=== PATIENT | female | born 1945 | race Asian ===

== ENCOUNTER 2020-04-01 13:51 | Emergency (ER) | payer MEDICARE, MEDICAID ==
[~2020-04-01] VITALS: Ht 157.5 cm; Wt 63.6 kg
[2020-04-01] MEDS ORDERED: UNKNOWN BP MED PO (13:59)
[2020-04-01] MEDS ORDERED: LISI-662 PO (14:03)
[2020-04-01 14:10] VITALS: BP 133/97
[2020-04-01] MEDS ORDERED: BUPIVACAINE HCL/PF 0.25% 10 ML VIAL INJ ONE (15:00)
[2020-04-01] MEDS ORDERED: PERTUSS(ACELL),DIPH,TET VAC/PF 0.5 ML VIAL IM ONE (15:00)
== END 2020-04-01 15:45 | disposition home or self-care (01) ==
LOC: EMS 13:57
DX: S61.211A Laceration without foreign body of left index finger without damage to nail, initial encounter (principal); Z88.0 Allergy status to penicillin; Z79.899 Other long term (current) drug therapy; W26.0XXA Contact with knife, initial encounter; Y93.89 Activity, other specified; Y92.89 Other specified places as the place of occurrence of the external cause; Y99.8 Other external cause status
CPT/HCPCS: 90471; 90715; 99283; J3490

== ENCOUNTER 2022-10-20 15:10 | Inpatient (IN) | payer MEDICARE, OTHER ==
[~2022-10-20] VITALS: Ht 154.9 cm; Wt 69.9 kg
[~2022-10-20 15:10] MED LIST: LISI-894 PO
[2022-10-20] MEDS ORDERED: ACETAMINOPHEN 500 MG TABLET PO ONE (16:15)
[2022-10-20 16:59] LABS: BASOPHILS % (AUTO) 0.2 % (0.0-2.0); EOSINOPHILS % (AUTO) 0.1 % (1.0-6.0); HEMATOCRIT 34.2 % (36-46); HEMOGLOBIN 10.5 g/dL (12.0-16.0); LYMPHOCYTES # (AUTO) 1.4 K/uL (1.0-4.8); LYMPHOCYTES % (AUTO) 10.2 % (22.0-44.0); MEAN CORPUSCULAR HEMOGLOBIN 21.5 pg (26.0-34.0); MEAN CORPUSCULAR HGB CONC 30.8 G/dL (31.0-37.0); MEAN CORPUSCULAR VOLUME 70 fL (80-100); MONOCYTES # (AUTO) 1.7 K/uL (0.1-1.0); MONOCYTES % (AUTO) 12.5 % (2.0-9.0); NEUTROPHILS # (AUTO) 10.2 K/uL (1.8-7.7); PLATELET COUNT (AUTO) 226 K/uL (150-450); RED BLOOD CELL COUNT(AUTO) 4.89 MIL/uL (4.00-5.20); RED CELL DISTRIBUTION WIDTH 14.4 % (11.5-14.5)
[2022-10-20 17:09] LABS: CALCIUM, TOTAL 9.6 mg/dL (8.8-10.5); CREATININE 1.8 mg/dL (0.60-1.30); POTASSIUM 4.1 mmol/L (3.5-5.1)
[2022-10-20 17:16] LABS: ALBUMIN 3.5 g/dL (3.4-5.0); BILIRUBIN,TOTAL 0.9 mg/dL (0.1-1.0); LACTIC ACID 1.6 mmol/L (0.4-2.0); TOTAL PROTEIN, SERUM 8.5 g/dL (6.4-8.2)
[2022-10-20] MEDS ORDERED: HYDROCODONE/ACETAMINOPHEN 5-325 MG TABLET PO ONE (19:30)
[2022-10-20] MEDS ORDERED: ACETAMINOPHEN 325 MG TABLET PO PRN (23:45)
[2022-10-20] MEDS ORDERED: HYDROCODONE/ACETAMINOPHEN 5-325 MG TABLET PO PRN (23:45)
[2022-10-20] MEDS ORDERED: ONDANSETRON HCL 4 MG/2 ML VIAL IVP PRN (23:45)
[2022-10-21 00:02] LABS: % IRON SATURATION 7.4 % (22-44)
[2022-10-21] MEDS: SODIUM CHLORIDE 0.9% 1,850 ML IV ONE ×2 (01:00→02:07)
[2022-10-21] MEDS ORDERED: MORPHINE SULFATE 2 MG/ML SYRINGE IVP ONE (01:00)
[2022-10-21] MEDS: HEPARIN SODIUM,PORCINE 5,000 UNITS/ML VIAL SQ SCH ×4 (08:07→23:52)
[2022-10-21 08:16] LABS: GLUCOSE,POINT OF CARE 88 MG/DL (70-110)
[2022-10-21 08:56] LABS: APPEARANCE,URINE CLEAR (CLEAR); BILIRUBIN,URINE NEGATIVE (NEGATIVE); GLUCOSE, URINE (UA) NEGATIVE (NEGATIVE); KETONES,URINE TRACE mg/dL (NEGATIVE); LEUKOCYTE ESTERASE ,URINE NEGATIVE (NEGATIVE); NITRATE,URINE NEGATIVE (NEGATIVE); OCCULT BLOOD,URINE NEGATIVE (NEGATIVE); PROTEIN,URINE NEGATIVE (NEGATIVE); SPECIFIC GRAVITIY, URINE 1.011 (1.003-1.030); UROBILINOGEN,URINE <=1.0 mg/dL (<=1.0)
[2022-10-21 09:02] LABS: BACTERIA,URINE None Seen /HPF (None Seen); RBC,URINE None Seen /HPF (0-2); WBC,URINE None Seen /HPF (0-5)
[2022-10-21 09:03] LABS: CREATININE,URINE RANDOM 66.4 mg/dL (30.0-125.0); SODIUM,URINE RANDOM 79 mmol/l (20-110)
[2022-10-21 09:54] VITALS: BP 124/85
[2022-10-21 10:41] LABS: BASOPHILS % (AUTO) 0.3 % (0.0-2.0); EOSINOPHILS % (AUTO) 0.7 % (1.0-6.0); HEMATOCRIT 33.2 % (36-46); HEMOGLOBIN 10.2 g/dL (12.0-16.0); LYMPHOCYTES # (AUTO) 1.2 K/uL (1.0-4.8); LYMPHOCYTES % (AUTO) 11.1 % (22.0-44.0); MEAN CORPUSCULAR HGB CONC 30.9 G/dL (31.0-37.0); MEAN CORPUSCULAR VOLUME 71 fL (80-100); MONOCYTES # (AUTO) 0.8 K/uL (0.1-1.0); MONOCYTES % (AUTO) 7.6 % (2.0-9.0); NEUTROPHILS # (AUTO) 8.5 K/uL (1.8-7.7); NEUTROPHILS % (AUTO) 80.3 % (40.0-70.0); PLATELET COUNT (AUTO) 217 K/uL (150-450); RED BLOOD CELL COUNT(AUTO) 4.66 MIL/uL (4.00-5.20); RED CELL DISTRIBUTION WIDTH 14.4 % (11.5-14.5)
[2022-10-21 10:55] LABS: CALCIUM, TOTAL 8.9 mg/dL (8.8-10.5); CREATININE 1.46 mg/dL (0.60-1.30)
[2022-10-21] MEDS: DOCUSATE SODIUM 100 MG CAPSULE PO SCH ×2 (10:56→19:59)
[2022-10-21] MEDS ORDERED: INSULIN LISPRO 100 UNITS/ML SQ PRN (11:00)
[2022-10-21] MEDS ORDERED: DEXTROSE 50%-WATER 25 GM/50 ML SYRINGE IVP PRN (11:00)
[2022-10-21 17:36] LABS: GLUCOMETER DEV NAME(LOC) 5N.2C; GLUCOSE,POINT OF CARE 97 MG/DL (70-110)
[2022-10-21 19:56] LABS: GLUCOMETER DEV NAME(LOC) 5N.2C; GLUCOSE,POINT OF CARE 87 MG/DL (70-110)
[2022-10-21 20:00] VITALS: BP 127/61
[2022-10-21] MEDS: HYDROmorphone HCL 2 MG/ML SYRINGE IVP PRN (23:49)
[2022-10-22] VITALS: BP_SYST 130; BP_DIAS 72; BP_DIAS 75
[2022-10-22 01:01] LABS: GLUCOMETER DEV NAME(LOC) 5N.2C; GLUCOSE,POINT OF CARE 112 MG/DL (70-110)
[2022-10-22 04:00] VITALS: BP 114/58
[2022-10-22] MEDS: HYDROmorphone HCL 2 MG/ML SYRINGE IVP PRN (06:03)
[2022-10-22 07:15] VITALS: BP 114/65
[2022-10-22] MEDS: DOCUSATE SODIUM 100 MG CAPSULE PO SCH ×2 (09:11→20:12)
[2022-10-22] MEDS: HEPARIN SODIUM,PORCINE 5,000 UNITS/ML VIAL SQ SCH ×2 (09:12→16:18)
[2022-10-22 12:16] VITALS: BP 130/80
[2022-10-22 15:28] VITALS: BP 131/74
[2022-10-22 18:26] LABS: GLUCOMETER DEV NAME(LOC) 5S.2C; GLUCOSE,POINT OF CARE 89 MG/DL (70-110)
[2022-10-22 18:26] LABS: GLUCOMETER DEV NAME(LOC) 5S.2C; GLUCOSE,POINT OF CARE 84 MG/DL (70-110)
[2022-10-22 20:00] VITALS: BP 129/68
[2022-10-22 21:41] LABS: GLUCOMETER DEV NAME(LOC) 5N.2C; GLUCOSE,POINT OF CARE 107 MG/DL (70-110)
[2022-10-22 21:41] LABS: GLUCOMETER DEV NAME(LOC) 5N.2C; GLUCOSE,POINT OF CARE 76 MG/DL (70-110)
[2022-10-23] VITALS: BP 133/70
[2022-10-23 04:00] VITALS: BP 119/97
[2022-10-23 07:13] VITALS: BP 153/92
[2022-10-23] MEDS: HEPARIN SODIUM,PORCINE 5,000 UNITS/ML VIAL SQ SCH ×3 (08:21→16:37)
[2022-10-23] MEDS: DOCUSATE SODIUM 100 MG CAPSULE PO SCH ×2 (08:25→20:48)
[2022-10-23 11:40] VITALS: BP 121/73
[2022-10-23 15:59] VITALS: BP 129/76
[2022-10-23 19:01] LABS: GLUCOMETER DEV NAME(LOC) 5N.2C; GLUCOSE,POINT OF CARE 100 MG/DL (70-110)
[2022-10-23 19:01] LABS: GLUCOMETER DEV NAME(LOC) 5N.2C; GLUCOSE,POINT OF CARE 98 MG/DL (70-110)
[2022-10-23 20:50] VITALS: BP 118/69
[2022-10-24 00:18] VITALS: BP 99/75
[2022-10-24 05:01] LABS: GLUCOMETER DEV NAME(LOC) 5N.2C; GLUCOSE,POINT OF CARE 117 MG/DL (70-110)
[2022-10-24 06:30] VITALS: BP 117/74
[2022-10-24 07:45] VITALS: BP 129/62
[2022-10-24] MEDS: DOCUSATE SODIUM 100 MG CAPSULE PO SCH (07:49)
[2022-10-24] MEDS: HEPARIN SODIUM,PORCINE 5,000 UNITS/ML VIAL SQ SCH ×2 (07:49)
[2022-10-24 11:30] VITALS: BP 112/56
[2022-10-24 14:10] LABS: COVID AG,FIA SOURCE NASOPHARYNGEAL
[2022-10-24 17:52] LABS: GLUCOMETER DEV NAME(LOC) 5S.2C; GLUCOSE,POINT OF CARE 103 MG/DL (70-110)
[2022-10-24 17:52] LABS: GLUCOMETER DEV NAME(LOC) 5S.2C; GLUCOSE,POINT OF CARE 105 MG/DL (70-110)
== END 2022-10-24 16:16 | DRG 563 ==
LOC: EMS 15:34 → 5N 10-21 05:00
PROVIDERS: ADMIT Internal Medicine; ATTEND Internal Medicine
DX: S82.51XA Displaced fracture of medial malleolus of right tibia, initial encounter for closed fracture (principal); N17.9 Acute kidney failure, unspecified; Z20.822 Contact with and (suspected) exposure to COVID-19; Z60.2 Problems related to living alone; D50.9 Iron deficiency anemia, unspecified; M25.531 Pain in right wrist; E66.9 Obesity, unspecified; M25.532 Pain in left wrist; E11.9 Type 2 diabetes mellitus without complications; I10 Essential (primary) hypertension; Z88.0 Allergy status to penicillin; Z79.899 Other long term (current) drug therapy; V78.4XXA Person boarding or alighting from bus injured in noncollision transport accident, initial encounter; Y93.89 Activity, other specified; Y92.89 Other specified places as the place of occurrence of the external cause; Y99.8 Other external cause status; Z68.29 Body mass index [BMI] 29.0-29.9, adult
CPT/HCPCS: 71046; 80048; 80053; 81001; 82570; 82962; 83540; 83550; 83605; 83735; 84300; 85025; 85045; 87040; 93005; 97162; 97166; 97530; 97535; 99285; J1170; J1644; J2270; J7030; 36415-L1; 36415-TC

== ENCOUNTER 2023-04-27 13:11 | Emergency (ER) | payer MEDICARE, OTHER ==
[~2023-04-27] VITALS: Ht 157.5 cm; Wt 75.0 kg
[2023-04-27 13:15] VITALS: TEMP 98.9
[2023-04-27] MEDS ORDERED: LISI40TA9 PO (13:25)
[2023-04-27] MEDS ORDERED: CALC-1267 PO (13:25)
[2023-04-27 13:41] LABS: BASOPHILS % (AUTO) 0.4 % (0.0-2.0); EOSINOPHILS % (AUTO) 0.6 % (1.0-6.0); HEMATOCRIT 37.3 % (36-46); HEMOGLOBIN 11.7 g/dL (12.0-16.0); LYMPHOCYTES # (AUTO) 1.7 K/uL (1.0-4.8); LYMPHOCYTES % (AUTO) 15.5 % (22.0-44.0); MEAN CORPUSCULAR HEMOGLOBIN 22.1 pg (26.0-34.0); MEAN CORPUSCULAR HGB CONC 31.4 G/dL (31.0-37.0); MEAN CORPUSCULAR VOLUME 70 fL (80-100); NEUTROPHILS % (AUTO) 74.5 % (40.0-70.0); PLATELET COUNT (AUTO) 200 K/uL (150-450); RED BLOOD CELL COUNT(AUTO) 5.31 MIL/uL (4.00-5.20); RED CELL DISTRIBUTION WIDTH 15.6 % (11.5-14.5); WHITE BLOOD COUNT (AUTO) 10.8 K/uL (4.5-11.0)
[2023-04-27 13:52] LABS: CALCIUM, TOTAL 9.6 mg/dL (8.8-10.5); CREATININE 1.24 mg/dL (0.60-1.30); POTASSIUM 3.9 mmol/L (3.5-5.1)
[2023-04-27 14:00] LABS: ALBUMIN 3.8 g/dL (3.4-5.0); BILIRUBIN,TOTAL 0.5 mg/dL (0.1-1.0); TOTAL PROTEIN, SERUM 8.3 g/dL (6.4-8.2)
[2023-04-27 14:03] LABS: RBC MORPHOLOGY COMMENT ABNORMAL RBC MORPH
[2023-04-27] MEDS ORDERED: IBUPROFEN 600 MG TABLET PO ONE (16:15)
[2023-04-27] MEDS ORDERED: ACETAMINOPHEN 500 MG TABLET PO ONE (16:15)
[2023-04-27 16:27] LABS: INR 0.9 (0.9-1.1); PROTHROMBIN TIME 9.8 SEC (9.4-11.6)
[2023-04-27 16:32] LABS: TROPONIN I-HIGH SENSITIVITY 10 ng/L (<51)
[2023-04-27 16:37] VITALS: BP 175/106; PULSE 82; RESP 18
[2023-04-27 16:43] LABS: B-TYPE NATRIURETIC PEPTIDE 69 pg/mL (0-100); CREATINE KINASE, TOTAL ONLY 126 U/L (26-192)
[2023-04-27] MEDS ORDERED: IBUP-45 PO (17:19)
[2023-04-27] MEDS ORDERED: ACET-66 PO (17:19)
[2023-04-27 17:25] LABS: APPEARANCE,URINE CLEAR (CLEAR); BILIRUBIN,URINE NEGATIVE (NEGATIVE); COLOR,URINE LIGHT YELLOW (YELLOW); GLUCOSE, URINE (UA) NEGATIVE (NEGATIVE); KETONES,URINE NEGATIVE (NEGATIVE); LEUKOCYTE ESTERASE ,URINE TRACE (NEGATIVE); NITRATE,URINE NEGATIVE (NEGATIVE); OCCULT BLOOD,URINE NEGATIVE (NEGATIVE); PROTEIN,URINE 100-200,SEE CONFIRM mg/dL (NEGATIVE); SPECIFIC GRAVITIY, URINE 1.019 (1.003-1.030); UROBILINOGEN,URINE <=1.0 mg/dL (<=1.0)
[2023-04-27 17:33] LABS: BACTERIA,URINE Rare /HPF (None Seen); RBC,URINE 0-2 /HPF (0-2); SQUAMOUS EPITHELIAL CELL,UR Moderate /LPF (None Seen); SULFOSALICYLIC ACID,URINE 2+ (Negative)
== END 2023-04-27 18:41 | disposition home or self-care (01) ==
LOC: EMS 13:12
DX: S62.102A Fracture of unspecified carpal bone, left wrist, initial encounter for closed fracture (principal); S63.501A Unspecified sprain of right wrist, initial encounter; S80.02XA Contusion of left knee, initial encounter; S90.412A Abrasion, left great toe, initial encounter; R42 Dizziness and giddiness; R29.6 Repeated falls; E11.9 Type 2 diabetes mellitus without complications; I10 Essential (primary) hypertension; Z88.0 Allergy status to penicillin; W18.39XA Other fall on same level, initial encounter; Y93.89 Activity, other specified; Y92.89 Other specified places as the place of occurrence of the external cause; Y99.8 Other external cause status
CPT/HCPCS: 71045; 80053; 81001; 81002; 82550; 82962; 83880; 84484; 85025; 85610; 85730; 93005; 99285; 36415-L1; 36415-TC

== ENCOUNTER 2024-09-02 11:57 | Emergency (ER) | payer MEDICARE, OTHER ==
[~2024-09-02] VITALS: Ht 157.5 cm; Wt 75.0 kg
[~2024-09-02 11:57] MED LIST changes: +ACET-66 PO; +CALC-1267 PO; +IBUP-45 PO; -LISI-894 PO; +LISI40TA9 PO
[2024-09-02 12:05] VITALS: TEMP 98.2
[2024-09-02 14:48] VITALS: BP 146/77; PULSE 82; RESP 16; O2SAT 99
== END 2024-09-02 15:14 | disposition home or self-care (01) ==
LOC: EMS 11:59
DX: R60.0 Localized edema (principal); I10 Essential (primary) hypertension; Z88.0 Allergy status to penicillin; Z79.899 Other long term (current) drug therapy
CPT/HCPCS: 93971; 99284; 73610-TC; Z7502